=== PATIENT | female | born 1990 | race African-American/Black ===

== ENCOUNTER 2017-11-27 09:55 | Emergency (ER) | payer OTHER ==
[~2017-11-27] VITALS: Ht 162.6 cm; Wt 63.5 kg
[~2017-11-27 09:55] MED LIST: ACETAMINOPHEN325 M1 PO; ALEVE220 MG PO; BACTRIM DS TAB1 EACH PO; BENADRYL25 MG PO; ERYC250 MG PO; FLEXERIL PO; IBUPROFEN 600600 M1 PO; IBUPROFEN 800800 MG PO; KEFLEX500 MG PO; NOHOMEMEDICATIONS; NORCO 5-325 TA1 EACH PO; PENICILLIN V P500 MG PO; PRILOSEC40 MG PO
[2017-11-27 11:11] VITALS: BP 123/69
== END 2017-11-27 11:11 | disposition home or self-care (01) ==
LOC: ER 09:55
DX: S60.111A Contusion of right thumb with damage to nail, initial encounter (principal); W22.8XXA Striking against or struck by other objects, initial encounter; Y93.89 Activity, other specified; Y92.89 Other specified places as the place of occurrence of the external cause; Y99.0 Civilian activity done for income or pay